=== PATIENT | female | born 1980 | race Two or more races ===

== ENCOUNTER 2017-09-27 13:22 | Outpatient (CLI) | payer OTHER | END 2017-09-27 16:01 | disposition home or self-care (01) | LOC: SONOGRAMA 13:22 | DX: E89.0 Postprocedural hypothyroidism (principal); E04.8 Other specified nontoxic goiter ==

== ENCOUNTER 2017-10-03 11:35 | Outpatient (CLI) | payer OTHER | END 2017-10-03 16:16 | disposition home or self-care (01) | LOC: SONOGRAMA 11:35 | DX: E04.8 Other specified nontoxic goiter (principal) ==

== ENCOUNTER 2017-11-16 12:55 | Emergency (ER) | payer OTHER ==
[~2017-11-16] VITALS: Ht 152.4 cm; Wt 54.4 kg
[2017-11-16] MEDS ORDERED: SYNTHROID50 MCG PO (13:23)
[2017-11-16] MEDS ORDERED: SYNTHROID200 MCG PO (13:23)
[2017-11-16] MEDS ORDERED: TRESIBA FL100 UNIT/1 SQ (13:24)
[2017-11-16] MEDS ORDERED: HUMALOG100 UNIT/1 SQ (13:24)
== END 2017-11-16 18:11 | disposition home or self-care (01) ==
LOC: ER 12:55
DX: E10.649 Type 1 diabetes mellitus with hypoglycemia without coma (principal)

== ENCOUNTER 2017-12-06 10:20 | Outpatient (CLI) | payer OTHER ==
[~2017-12-06 10:20] MED LIST: HUMALOG100 UNIT/1 SQ; SYNTHROID200 MCG PO; SYNTHROID50 MCG PO; TRESIBA FL100 UNIT/1 SQ
== END 2017-12-06 10:30 | disposition home or self-care (01) ==
LOC: LAB 10:20
DX: Z11.3 Encounter for screening for infections with a predominantly sexual mode of transmission (principal)

== ENCOUNTER 2018-01-30 09:04 | Outpatient (CLI) | payer OTHER | END 2018-01-30 15:02 | disposition home or self-care (01) | LOC: RAD 09:04 | DX: M79.644 Pain in right finger(s) (principal) ==

== ENCOUNTER 2018-01-30 09:40 | Outpatient (CLI) | payer OTHER | END 2018-01-30 09:41 | disposition home or self-care (01) | LOC: LAB 09:40 | DX: L03.113 Cellulitis of right upper limb (principal); M79.644 Pain in right finger(s) ==

== ENCOUNTER 2018-03-21 14:48 | Outpatient (CLI) | payer OTHER | END 2018-03-21 14:51 | disposition home or self-care (01) | LOC: MAMO-SONO 14:48 | DX: Z12.31 Encounter for screening mammogram for malignant neoplasm of breast (principal) ==

== ENCOUNTER 2018-03-22 07:25 | Outpatient (CLI) | payer OTHER | END 2018-03-22 07:29 | disposition home or self-care (01) | LOC: LAB 07:25 | DX: E03.8 Other specified hypothyroidism (principal); D50.8 Other iron deficiency anemias ==

== ENCOUNTER 2018-04-09 16:37 | Emergency (ER) | payer OTHER ==
[~2018-04-09] VITALS: Ht 152.4 cm; Wt 55.8 kg
[2018-04-09] MEDS ORDERED: SYNTHROID75 MCG PO (17:01)
== END 2018-04-09 18:00 | disposition home or self-care (01) ==
LOC: ER 16:37
DX: L02.211 Cutaneous abscess of abdominal wall (principal)

== ENCOUNTER 2018-07-09 10:46 | Emergency (ER) | payer OTHER ==
[~2018-07-09] VITALS: Ht 152.4 cm; Wt 56.7 kg
[~2018-07-09 10:46] MED LIST changes: +SYNTHROID75 MCG PO
== END 2018-07-09 12:58 | disposition home or self-care (01) ==
LOC: ER 10:46
DX: K29.70 Gastritis, unspecified, without bleeding (principal)

== ENCOUNTER 2018-08-16 12:53 | Outpatient (CLI) | payer OTHER | END 2018-08-16 12:59 | disposition home or self-care (01) | LOC: LAB 12:53 | DX: J11.1 Influenza due to unidentified influenza virus with other respiratory manifestations (principal); J11.89 Influenza due to unidentified influenza virus with other manifestations ==

== ENCOUNTER 2018-12-17 15:35 | Outpatient (CLI) | payer OTHER | END 2018-12-17 15:43 | disposition home or self-care (01) | LOC: CERTIFICAD 15:35 → LAB 15:35 | DX: Z11.1 Encounter for screening for respiratory tuberculosis (principal) ==

== ENCOUNTER 2019-01-09 06:35 | Outpatient (CLI) | payer OTHER | END 2019-01-09 06:59 | disposition home or self-care (01) | LOC: LAB 06:35 | DX: E78.49 Other hyperlipidemia (principal); E03.8 Other specified hypothyroidism; Z00.00 Encounter for general adult medical examination without abnormal findings; R10.13 Epigastric pain ==

== ENCOUNTER 2019-01-11 08:43 | Outpatient (CLI) | payer OTHER | END 2019-01-11 08:48 | disposition home or self-care (01) | LOC: LAB 08:43 | DX: N39.0 Urinary tract infection, site not specified (principal) ==

== ENCOUNTER 2019-02-02 10:15 | Outpatient (CLI) | payer OTHER | END 2019-02-02 10:50 | disposition home or self-care (01) | LOC: SONOGRAMA 10:15 | DX: R10.2 Pelvic and perineal pain (principal) ==

== ENCOUNTER → 2019-02-02 10:56 | Outpatient (CLI) | payer OTHER | END | disposition home or self-care (01) | LOC: LAB 10:56 | DX: R97.1 Elevated cancer antigen 125 [CA 125] (principal) ==

== ENCOUNTER 2019-02-27 07:47 | Outpatient (CLI) | payer OTHER | END 2019-02-27 08:30 | disposition home or self-care (01) | LOC: SONOGRAMA 07:47 | DX: R10.84 Generalized abdominal pain (principal) ==

== ENCOUNTER 2019-03-05 15:44 | Outpatient (CLI) | payer OTHER | END 2019-03-05 15:52 | disposition home or self-care (01) | LOC: LAB 15:44 | DX: R05 Cough (principal); J11.1 Influenza due to unidentified influenza virus with other respiratory manifestations ==

== ENCOUNTER 2019-05-10 10:59 | Outpatient (CLI) | payer OTHER | END 2019-05-10 11:26 | disposition home or self-care (01) | LOC: NUCLEAR 10:59 | DX: I73.9 Peripheral vascular disease, unspecified (principal); R60.0 Localized edema ==

== ENCOUNTER 2019-06-20 09:24 | Outpatient (CLI) | payer OTHER | END 2019-06-20 09:27 | disposition home or self-care (01) | LOC: LAB 09:24 | DX: J11.1 Influenza due to unidentified influenza virus with other respiratory manifestations (principal); J06.9 Acute upper respiratory infection, unspecified ==

== ENCOUNTER 2019-09-18 07:43 | Outpatient (CLI) | payer OTHER | END 2019-09-18 08:34 | disposition home or self-care (01) | LOC: LAB 07:43 | DX: N18.1 Chronic kidney disease, stage 1 (principal); D64.89 Other specified anemias; E11.9 Type 2 diabetes mellitus without complications; E21.2 Other hyperparathyroidism; K76.0 Fatty (change of) liver, not elsewhere classified ==

== ENCOUNTER 2019-09-18 08:32 | Outpatient (CLI) | payer OTHER | END 2019-09-18 08:40 | disposition home or self-care (01) | LOC: SONOGRAMA 08:32 | DX: N18.1 Chronic kidney disease, stage 1 (principal); D64.89 Other specified anemias; E11.9 Type 2 diabetes mellitus without complications; E21.2 Other hyperparathyroidism ==

== ENCOUNTER → 2019-11-27 09:59 | Outpatient (CLI) | payer OTHER | END | disposition home or self-care (01) | LOC: LAB 09:59 | PROVIDERS: ATTEND General Practice | DX: J11.1 Influenza due to unidentified influenza virus with other respiratory manifestations (principal); R05 Cough; Z20.828 Contact with and (suspected) exposure to other viral communicable diseases; Z11.59 Encounter for screening for other viral diseases; Z11.1 Encounter for screening for respiratory tuberculosis ==

== ENCOUNTER 2020-01-21 06:00 | Outpatient (CLI) | payer OTHER | END 2020-01-21 15:00 | disposition home or self-care (01) | LOC: PPH VACUNA 06:00 | DX: Z23 Encounter for immunization (principal) ==

== ENCOUNTER → 2020-02-14 14:18 | Outpatient (CLI) | payer OTHER | END | disposition home or self-care (01) | LOC: LAB 14:18 | DX: M19.042 Primary osteoarthritis, left hand (principal); M19.041 Primary osteoarthritis, right hand; M19.072 Primary osteoarthritis, left ankle and foot; M19.071 Primary osteoarthritis, right ankle and foot; M19.012 Primary osteoarthritis, left shoulder; M19.011 Primary osteoarthritis, right shoulder ==

== ENCOUNTER → 2020-04-23 23:44 | Outpatient (CLI) | payer OTHER | END | disposition home or self-care (01) | LOC: NUCLEAR 05-20 08:00 → PPH VACUNA 23:44 | DX: Z23 Encounter for immunization (principal) ==

== ENCOUNTER 2020-06-02 13:31 | Outpatient (CLI) | payer OTHER | END 2020-06-02 16:32 | disposition home or self-care (01) | LOC: LAB 13:31 | DX: E11.22 Type 2 diabetes mellitus with diabetic chronic kidney disease (principal); N18.1 Chronic kidney disease, stage 1; M06.00 Rheumatoid arthritis without rheumatoid factor, unspecified site ==

== ENCOUNTER → 2020-06-15 | Outpatient (CLI) | payer OTHER | END | disposition home or self-care (01) | LOC: LAB 11:29 | DX: E03.8 Other specified hypothyroidism (principal); E55.9 Vitamin D deficiency, unspecified; E78.2 Mixed hyperlipidemia; E10.65 Type 1 diabetes mellitus with hyperglycemia ==

== ENCOUNTER → 2020-08-12 10:58 | Outpatient (CLI) | payer OTHER | END | disposition home or self-care (01) | LOC: LAB 10:58 | DX: E05.00 Thyrotoxicosis with diffuse goiter without thyrotoxic crisis or storm (principal); E55.9 Vitamin D deficiency, unspecified; N80.3 Endometriosis of pelvic peritoneum; N83.209 Unspecified ovarian cyst, unspecified side; N92.0 Excessive and frequent menstruation with regular cycle ==

== ENCOUNTER 2021-02-01 08:00 | Outpatient (CLI) | payer OTHER | END 2021-02-01 08:30 | disposition home or self-care (01) | LOC: PPH VACUNA 08:00 | PROVIDERS: ATTEND Emergency Medicine Pediatric Emergency Medicine | DX: Z23 Encounter for immunization (principal) ==

== ENCOUNTER 2021-04-26 09:00 | Outpatient (CLI) | payer OTHER | END 2021-04-26 09:30 | disposition home or self-care (01) | LOC: PPH VACUNA 09:00 | PROVIDERS: ATTEND Emergency Medicine Pediatric Emergency Medicine | DX: Z23 Encounter for immunization (principal) ==

== ENCOUNTER 2021-05-10 15:34 | Outpatient (CLI) | payer OTHER | END 2021-05-10 15:41 | disposition home or self-care (01) | LOC: LAB 15:34 | DX: U07.1 COVID-19 (principal) ==

== ENCOUNTER 2021-06-25 11:08 | Outpatient (CLI) | payer OTHER | END 2021-06-25 12:27 | disposition home or self-care (01) | LOC: SONOGRAMA 11:08 | PROVIDERS: ATTEND Internal Medicine Nephrology | DX: N18.1 Chronic kidney disease, stage 1 (principal); I10 Essential (primary) hypertension; E11.21 Type 2 diabetes mellitus with diabetic nephropathy ==

== ENCOUNTER 2021-07-26 08:12 | Outpatient (CLI) | payer OTHER | END 2021-07-26 08:17 | disposition home or self-care (01) | LOC: SONOGRAMA 08:12 | PROVIDERS: ATTEND Internal Medicine Gastroenterology | DX: R10.84 Generalized abdominal pain (principal) ==

== ENCOUNTER 2021-09-30 07:17 | Outpatient (CLI) | payer OTHER | END 2021-09-30 07:28 | disposition home or self-care (01) | LOC: NUCLEAR 07:17 | PROVIDERS: ATTEND Internal Medicine Gastroenterology | DX: K31.84 Gastroparesis (principal) | CPT/HCPCS: 78264; A9541 ==

== ENCOUNTER 2022-01-05 10:31 | Outpatient (CLI) | payer OTHER | END 2022-01-05 10:36 | disposition home or self-care (01) | LOC: PPH VACUNA 10:31 | PROVIDERS: ATTEND Emergency Medicine Pediatric Emergency Medicine | DX: Z23 Encounter for immunization (principal) ==

== ENCOUNTER 2022-02-24 07:37 | Outpatient (CLI) | payer OTHER | END 2022-02-24 07:38 | disposition home or self-care (01) | LOC: MAMO-SONO 07:37 | PROVIDERS: ATTEND Surgery | DX: Z12.31 Encounter for screening mammogram for malignant neoplasm of breast (principal) ==

== ENCOUNTER 2022-05-30 07:11 | Outpatient (CLI) | payer OTHER | END 2022-05-30 07:44 | disposition home or self-care (01) | LOC: LAB 07:11 | PROVIDERS: ATTEND Internal Medicine | DX: N30.90 Cystitis, unspecified without hematuria (principal); E10.65 Type 1 diabetes mellitus with hyperglycemia; E78.5 Hyperlipidemia, unspecified; I10 Essential (primary) hypertension; E03.8 Other specified hypothyroidism ==

== ENCOUNTER 2022-06-14 15:19 | Outpatient (CLI) | payer OTHER | END 2022-06-14 15:23 | disposition home or self-care (01) | LOC: LAB 15:19 | PROVIDERS: ATTEND Specialist | DX: L02.91 Cutaneous abscess, unspecified (principal) ==

== ENCOUNTER 2022-07-01 08:57 | Outpatient (CLI) | payer OTHER | END 2022-07-01 09:46 | disposition home or self-care (01) | LOC: LAB 08:57 | DX: E03.8 Other specified hypothyroidism (principal); I10 Essential (primary) hypertension ==

== ENCOUNTER 2022-09-20 09:16 | Outpatient (CLI) | payer OTHER | END 2022-09-20 09:37 | disposition home or self-care (01) | LOC: LAB 09:16 | DX: N30.90 Cystitis, unspecified without hematuria (principal) ==

== ENCOUNTER 2022-11-04 12:57 | Outpatient (CLI) | payer OTHER | END 2022-11-04 13:00 | disposition home or self-care (01) | LOC: LAB 12:57 | DX: E10.65 Type 1 diabetes mellitus with hyperglycemia (principal); E78.5 Hyperlipidemia, unspecified; I10 Essential (primary) hypertension; E03.8 Other specified hypothyroidism ==

== ENCOUNTER 2023-03-01 09:07 | Outpatient (CLI) | payer OTHER | END 2023-03-01 09:12 | disposition home or self-care (01) | LOC: MAMO-SONO 09:07 | PROVIDERS: ATTEND Surgery | DX: Z12.31 Encounter for screening mammogram for malignant neoplasm of breast (principal); N60.11 Diffuse cystic mastopathy of right breast ==

== ENCOUNTER 2023-11-01 08:40 | Outpatient (CLI) | payer OTHER | END 2023-11-01 13:27 | disposition home or self-care (01) | LOC: LAB 08:40 | DX: Z20.828 Contact with and (suspected) exposure to other viral communicable diseases (principal); J11.1 Influenza due to unidentified influenza virus with other respiratory manifestations ==

== ENCOUNTER 2024-02-27 08:56 | Outpatient (CLI) | payer OTHER | END 2024-02-27 09:04 | disposition home or self-care (01) | LOC: MAMO-SONO 08:56 | PROVIDERS: ATTEND Surgery | DX: N60.11 Diffuse cystic mastopathy of right breast (principal); N60.12 Diffuse cystic mastopathy of left breast ==

== ENCOUNTER 2024-03-05 11:20 | Outpatient (CLI) | payer OTHER | END 2024-03-05 12:00 | disposition home or self-care (01) | LOC: PPH VACUNA 11:20 | PROVIDERS: ATTEND Emergency Medicine Pediatric Emergency Medicine | DX: Z23 Encounter for immunization (principal) ==

== ENCOUNTER 2024-05-27 06:44 | Outpatient (CLI) | payer OTHER ==
[2024-05-27 07:26] LABS: URINE APPEARANCE Clear; URINE BACTERIA 222.7 uL (0.0-1933); URINE BILIRRUBIN Negative (NEGATIVE); URINE BLOOD Negative; URINE COLOR Yellow; URINE EPITHELIAL CELLS 30.2 uL (0.0-38.8); URINE GLUCOSE Negative (NEGATIVE); URINE KETONE Negative (NEGATIVE); URINE LEUKOCYTE Negative; URINE NITRATE Negative; URINE RBC 4.2 uL (0.0-20.8); URINE UROBILINOGEN 0.2 E.U./dl; URINE WBC 31.1 uL (0.0-23.2)
[2024-05-27 07:27] LABS: HEMATOCRIT 28.2 % (36.0-45.00); MEAN CELL VOLUME 79.7 fL (80.00-100.00); MEAN CORPUSCULAR HGB CONC 32.1 g/dl (32.0-36.0); PLATELET COUNT 278 K/uL (150-450); RED BLOOD COUNT 3.54 M/uL (4.00-6.00)
[2024-05-27 07:29] LABS: HEMOGLOBIN 9.1 g/dL (12.0-15.00); MEAN CORPUSCULAR HEMOGLOBIN 25.7 pg (27.00-32.0)
[2024-05-27 07:32] LABS: URINE PROTEIN 100 (NEGATIVE)
[2024-05-27 08:46] LABS: ALBUMIN 3.1 gm/dL (3.4-5.0); BILIRUBIN TOTAL 0.2 mg/dL (0.3-1.2); CALCIUM 8.7 mg/dL (8.5-10.1); CREATININE SERUM 0.68 mg/dL (0.55-1.02); GFR 93.99; GLOBULINA 3.5 G/DL (2.4-3.5); PHOSPHOROUS 2.9 mg/dL (2.5-4.9); POTASSIUM 4.56 mEq/L (3.5-5.1); TOTAL PROTEIN 6.6 gm/dL (6.4-8.2)
[2024-05-27 08:56] LABS: URIC ACID 4.5 mg/dL (2.5-7.5)
[2024-05-27 09:10] LABS: T4 FREE 1.89 NG/ML (0.76-1.46); TSH 5.77 uIU/mL (0.358-3.74)
[2024-05-27 09:29] LABS: CREATININE URINE RANDOM 55.9 MG/DL (30-125)
== END 2024-05-27 06:47 | disposition home or self-care (01) ==
LOC: LAB 06:44
PROVIDERS: ATTEND Internal Medicine Nephrology
DX: I10 Essential (primary) hypertension (principal); N18.2 Chronic kidney disease, stage 2 (mild); E11.21 Type 2 diabetes mellitus with diabetic nephropathy; R80.9 Proteinuria, unspecified; E78.5 Hyperlipidemia, unspecified; E03.8 Other specified hypothyroidism

== ENCOUNTER → 2024-06-14 07:21 | Outpatient (CLI) | payer OTHER ==
[2024-06-14 08:14] LABS: HEMATOCRIT 28.5 % (36.0-45.00); HEMOGLOBIN 9.2 g/dL (12.0-15.00); MEAN CELL VOLUME 79.5 fL (80.00-100.00); MEAN CORPUSCULAR HEMOGLOBIN 25.6 pg (27.00-32.0); MEAN CORPUSCULAR HGB CONC 32.2 g/dl (32.0-36.0); PLATELET COUNT 275 K/uL (150-450); RED BLOOD COUNT 3.59 M/uL (4.00-6.00); RED CELL DISTRIBUTION WIDTH 15.8 % (11.5-14.5)
[2024-06-14 10:20] LABS: FERRITIN 6.7 NG/ML (8-252)
== END | disposition home or self-care (01) ==
LOC: LAB 07:21
PROVIDERS: ATTEND Internal Medicine Hematology & Oncology
DX: D50.8 Other iron deficiency anemias (principal); M05.80 Other rheumatoid arthritis with rheumatoid factor of unspecified site; M32.8 Other forms of systemic lupus erythematosus

== ENCOUNTER 2024-07-24 07:36 | Outpatient (CLI) | payer OTHER ==
[2024-07-24 08:11] LABS: HEMATOCRIT 33.7 % (36.0-45.00); HEMOGLOBIN 10.8 g/dL (12.0-15.00); MEAN CELL VOLUME 85.5 fL (80.00-100.00); MEAN CORPUSCULAR HEMOGLOBIN 27.4 pg (27.00-32.0); MEAN CORPUSCULAR HGB CONC 32.1 g/dl (32.0-36.0); PLATELET COUNT 256 K/uL (150-450); RED BLOOD COUNT 3.94 M/uL (4.00-6.00)
[2024-07-24 08:16] LABS: RED CELL DISTRIBUTION WIDTH 20.9 % (11.5-14.5)
[2024-07-24 20:04] LABS: FERRITIN 293.7 NG/ML (8-252)
== END 2024-07-24 07:45 | disposition home or self-care (01) ==
LOC: LAB 07:36
PROVIDERS: ATTEND Internal Medicine Hematology & Oncology
DX: D50.0 Iron deficiency anemia secondary to blood loss (chronic) (principal); D63.8 Anemia in other chronic diseases classified elsewhere; D50.8 Other iron deficiency anemias

== ENCOUNTER 2024-08-28 06:49 | Outpatient (CLI) | payer OTHER ==
[2024-08-28 07:28] LABS: HEMATOCRIT 33.4 % (36.0-45.00); HEMOGLOBIN 11.1 g/dL (12.0-15.00); MEAN CELL VOLUME 86.4 fL (80.00-100.00); MEAN CORPUSCULAR HEMOGLOBIN 28.7 pg (27.00-32.0); MEAN CORPUSCULAR HGB CONC 33.2 g/dl (32.0-36.0); PLATELET COUNT 285 K/uL (150-450); RED BLOOD COUNT 3.86 M/uL (4.00-6.00); RED CELL DISTRIBUTION WIDTH 19.7 % (11.5-14.5)
[2024-08-28 08:04] LABS: URINE APPEARANCE Clear; URINE BILIRRUBIN Negative (NEGATIVE); URINE BLOOD Moderate; URINE COLOR Yellow; URINE GLUCOSE Negative (NEGATIVE); URINE KETONE Negative (NEGATIVE); URINE LEUKOCYTE Negative; URINE NITRATE Negative; URINE UROBILINOGEN 0.2 E.U./dl
[2024-08-28 08:16] LABS: URINE BACTERIA 1567.8 uL (0.0-1933); URINE EPITHELIAL CELLS 153.8 uL (0.0-38.8); URINE RBC 42.4 uL (0.0-20.8); URINE WBC 7.7 uL (0.0-23.2)
[2024-08-28 08:30] LABS: ALBUMIN 3.1 gm/dL (3.4-5.0); BILIRUBIN TOTAL 0.17 mg/dL (0.3-1.2); CALCIUM 8.6 mg/dL (8.5-10.1); CHOL HDL RATIO 2.6 (0-5.0); CREATININE SERUM 0.75 mg/dL (0.55-1.02); GFR 83.95; GLOBULINA 3.3 G/DL (2.4-3.5); POTASSIUM 4.81 mEq/L (3.5-5.1); T4 FREE 1.26 NG/ML (0.76-1.46); TOTAL PROTEIN 6.4 gm/dL (6.4-8.2)
[2024-08-28 08:38] LABS: URINE PROTEIN 100 (NEGATIVE)
[2024-08-28 08:42] LABS: TSH 6.28 uIU/mL (0.358-3.74)
== END 2024-08-28 06:55 | disposition home or self-care (01) ==
LOC: LAB 06:49
PROVIDERS: ATTEND Internal Medicine Hematology & Oncology
DX: D50.8 Other iron deficiency anemias (principal); E10.65 Type 1 diabetes mellitus with hyperglycemia; E78.5 Hyperlipidemia, unspecified; I10 Essential (primary) hypertension; E03.8 Other specified hypothyroidism

== ENCOUNTER → 2024-10-07 | Outpatient (CLI) | payer OTHER ==
[2024-10-09 05:07] LABS: HEPATITIS B SURFACE ANTIBODY Non Reactive (.); HEPATITIS C VIRUS ANTIBODY Non Reactive (Non Reactive)
== END | disposition home or self-care (01) ==
LOC: LAB 11:07
DX: A64 Unspecified sexually transmitted disease (principal); B19.9 Unspecified viral hepatitis without hepatic coma

== ENCOUNTER 2025-03-04 10:32 | Outpatient (CLI) | payer OTHER | END 2025-03-04 10:37 | disposition home or self-care (01) | LOC: MAMO-SONO 10:32 | PROVIDERS: ATTEND Surgery | DX: N60.11 Diffuse cystic mastopathy of right breast (principal); N60.12 Diffuse cystic mastopathy of left breast ==

== ENCOUNTER 2025-03-07 13:47 | Outpatient (CLI) | payer OTHER | END 2025-03-07 13:57 | disposition home or self-care (01) | LOC: PPH VACUNA 13:47 | PROVIDERS: ATTEND Emergency Medicine Pediatric Emergency Medicine | DX: Z23 Encounter for immunization (principal) ==

== ENCOUNTER 2025-03-17 06:45 | Outpatient (CLI) | payer OTHER ==
[2025-03-17 08:01] LABS: BASO % 0.9 % (0.1-1.2); EOS # 0.29 (0.04-0.54); EOS % 3.3 % (0.7-7.0); LYMPH # 1.76 (1.18-3.74); LYMPH % 19.8 % (19.3-53.1); MEAN PLATELET VOLUME 10.40 fl (9.4-12.4); MONO # 0.67 (0.24-0.82); MONO % 7.5 % (4.7-12.5); NEUT # 6.09 (1.56-6.13); NEUT % 68.3 % (34.0-71.1); RED CELL DISTRIBUTION WIDTH 12.6 % (11.6-14.4)
[2025-03-17 08:02] LABS: URINE APPEARANCE Cloudy; URINE BILIRRUBIN Negative (NEGATIVE); URINE BLOOD Small; URINE COLOR Yellow; URINE KETONE Trace (NEGATIVE); URINE LEUKOCYTE Small; URINE NITRATE Negative; URINE UROBILINOGEN 0.2 E.U./dl
[2025-03-17 08:07] LABS: URINE RBC 69.0 uL (0.0-20.8); URINE WBC 144.4 uL (0.0-23.2)
[2025-03-17 08:45] LABS: URINE CAST 0.00 uL (0.0-1.40); URINE EPITHELIAL CELLS > 201.7 uL (0.0-38.8); URINE GLUCOSE >=1000 MG/DL (NEGATIVE); URINE PROTEIN 100 (NEGATIVE)
[2025-03-17 08:46] LABS: TYPE CELLS SQUAMOUS
[2025-03-17 09:03] LABS: ALT/SGPT 44.0 U/L (12-78); AST/SGOT 22.0 U/L (15-37); BILIRUBIN TOTAL 0.27 mg/dL (0.3-1.2); BUN CREA RATIO 23.0 (7.0-25.0); CHOL HDL RATIO 2.5 (0-5.0); CREATININE SERUM 0.84 mg/dL (0.55-1.02); GFR 73.32; GLOBULINA 3.7 G/DL (2.4-3.5); GLUCOSE FASTING 195.0 mg/dL (65-100); HDL 73.0 mg/dl (40-60); LDL 93.0 mg/dl (0-130); OSMOLALITY SERUM 283.0 MOSM/KG (275-295); T4 FREE 1.47 NG/ML (0.76-1.46); TSH 22.9 uIU/mL (0.358-3.74); VLDL 14.0 (0-39)
== END 2025-03-17 06:50 | disposition home or self-care (01) ==
LOC: LAB 06:45
PROVIDERS: ATTEND Internal Medicine
DX: E10.65 Type 1 diabetes mellitus with hyperglycemia (principal); E78.5 Hyperlipidemia, unspecified; I10 Essential (primary) hypertension; E03.8 Other specified hypothyroidism

== ENCOUNTER 2025-04-23 07:12 | Outpatient (CLI) | payer OTHER | END 2025-04-23 07:13 | disposition home or self-care (01) | LOC: NUCLEAR 07:12 | DX: E08.43 Diabetes mellitus due to underlying condition with diabetic autonomic (poly)neuropathy (principal) ==

== ENCOUNTER 2025-04-29 07:11 | Emergency (ER) | payer OTHER ==
[~2025-04-29] VITALS: Ht 152.4 cm; Wt 73.0 kg
[2025-04-29] MEDS ORDERED: LOSARTAN POTAS100 MG PO (07:36)
[2025-04-29 07:38] VITALS: BP 106/64; O2SAT 99
[2025-04-29] MEDS ORDERED: HYOSCYAMINE SULFATE 0.125 MG TAB.SUBL SL ONE (08:00)
[2025-04-29] MEDS ORDERED: KETOROLAC TROMETHAMINE 30 MG VIAL IV ONE (08:00)
[2025-04-29] MEDS ORDERED: ONDANSETRON HCL 2 MG/ML VIAL IV ONE (08:00)
[2025-04-29] MEDS ORDERED: FAMOTIDINE/PF 20 MG/2 ML VIAL IV ONE (08:00)
[2025-04-29] MEDS ORDERED: 0.9 % SODIUM CHLORIDE 1,000 ML IV ONE (08:00)
[2025-04-29] MEDS ORDERED: KETOROLAC TROMETHAMINE 30 MG VIAL ONE (09:14)
[2025-04-29] MEDS ORDERED: FAMOTIDINE/PF 20 MG/2 ML VIAL ONE (09:15)
[2025-04-29] MEDS ORDERED: HYOSCYAMINE SULFATE 0.125 MG TAB.SUBL ONE (09:15)
[2025-04-29] MEDS ORDERED: ONDANSETRON HCL 2 MG/ML VIAL ONE (09:15)
[2025-04-29 09:53] LABS: BASO % 0.4 % (0.1-1.2); EOS # 0.01 (0.04-0.54); EOS % 0.1 % (0.7-7.0); LYMPH # 1.10 (1.18-3.74); LYMPH % 7.7 % (19.3-53.1); MEAN PLATELET VOLUME 10.50 fl (9.4-12.4); MONO # 0.84 (0.24-0.82); MONO % 5.9 % (4.7-12.5); NEUT # 12.21 (1.56-6.13); NEUT % 85.5 % (34.0-71.1); RED CELL DISTRIBUTION WIDTH 13.4 % (11.6-14.4)
[2025-04-29 10:05] LABS: URINE APPEARANCE Clear; URINE BILIRRUBIN Negative (NEGATIVE); URINE BLOOD Negative; URINE COLOR Yellow; URINE LEUKOCYTE Negative; URINE NITRATE Negative; URINE UROBILINOGEN 1.0 E.U./dl
[2025-04-29 10:06] LABS: URINE CAST 6.37 uL (0.0-1.40); URINE RBC 9.2 uL (0.0-20.8); URINE WBC 26.8 uL (0.0-23.2)
[2025-04-29 10:22] LABS: URINE EPITHELIAL CELLS > 201.7 uL (0.0-38.8); URINE GLUCOSE >=1000 MG/DL (NEGATIVE); URINE KETONE 40 (NEGATIVE); URINE PROTEIN 300 (NEGATIVE)
[2025-04-29 10:56] LABS: ALT/SGPT 38 U/L (12-78); AST/SGOT 23 U/L (15-37); BILIRUBIN TOTAL 0.14 mg/dL (0.3-1.2); BILIRUBIN,CONJUGATED < 0.10 mg/dL (0.0-0.2); BUN CREA RATIO 10 (7.0-25.0); CREATININE SERUM 0.99 mg/dL (0.55-1.02); GFR 60.66; GLOBULINA 4.7 G/DL (2.4-3.5); GLUCOSE FASTING 135 mg/dL (65-100); OSMOLALITY SERUM 277 MOSM/KG (275-295)
[2025-04-29 11:04] LABS: COVID-19 AG NEGATIVE (NEGATIVE)
[2025-04-29] MEDS ORDERED: LEVSIN/SL0.125 MG SL (12:36)
[2025-04-29] MEDS ORDERED: PROBIOTIC1 EAC2 PO (12:36)
[2025-04-29] MEDS ORDERED: PEPCID AC20 MG PO (12:36)
[2025-04-29] MEDS ORDERED: ZOFRAN8 MG PO (12:36)
== END 2025-04-29 13:09 | disposition home or self-care (01) ==
LOC: ER 07:12
PROVIDERS: General Practice
DX: R10.13 Epigastric pain (principal); Z20.822 Contact with and (suspected) exposure to COVID-19; E11.9 Type 2 diabetes mellitus without complications; Z79.4 Long term (current) use of insulin; E03.9 Hypothyroidism, unspecified; Z88.8 Allergy status to other drugs, medicaments and biological substances